=== PATIENT | female | born 1980 | race Caucasian/White ===

== ENCOUNTER 2016-09-04 20:34 | Emergency (ER) | payer SELFPAY ==
[2016-09-04] MEDS ORDERED: OPTIRAY 350 100 ML VIAL HMH IV ONE (20:35)
[2016-09-04] MEDS ORDERED: PROMETHAZINE 25 MG/ML VIAL ONE (21:55)
[2016-09-04] MEDS ORDERED: SODIUM CHLORIDE 0.9% 50 ML IV ONE (21:55)
[2016-09-04] MEDS ORDERED: CEFTRIAXONE 1 GM VIAL ONE (22:13)
[2016-09-04] MEDS ORDERED: SODIUM CHLORIDE 0.9% 100 ML IV ONE (22:14)
== END 2016-09-04 23:15 | disposition home or self-care (01) ==
LOC: ER 20:34
DX: N39.0 Urinary tract infection, site not specified (principal); R31.9 Hematuria, unspecified; R10.2 Pelvic and perineal pain
CPT/HCPCS: 36415; 74177; 80053; 81001; 83690; 84703; 85025; 87088; 96365